=== PATIENT | female | born 1955 | race Caucasian/White ===

== ENCOUNTER 2021-07-01 20:37 | Emergency (ER) | payer MEDICARE, BC ==
[2021-07-01] MEDS ORDERED: Ketorolac Tromethamine 30 MG/ML VIAL ONE (21:43)
[2021-07-01] MEDS ORDERED: Morphine 4 MG/ML VIAL ONE (21:43)
[2021-07-02] MEDS ORDERED: Morphine 4 MG/ML VIAL ONE (02:16)
== END 2021-07-02 01:37 | disposition short-term general hospital (02) ==
LOC: CSHERS 20:37
DX: S72.051A Unspecified fracture of head of right femur, initial encounter for closed fracture (principal); E78.2 Mixed hyperlipidemia; I10 Essential (primary) hypertension; Z79.899 Other long term (current) drug therapy; W01.0XXA Fall on same level from slipping, tripping and stumbling without subsequent striking against object, initial encounter
CPT/HCPCS: J1885; J2270

== ENCOUNTER 2021-09-20 13:41 | Outpatient (CLI) | payer MEDICARE, BC | END 2021-09-20 13:42 | disposition home or self-care (01) | LOC: CSHMAMMO 13:41 | PROVIDERS: ATTEND Family Medicine | DX: Z12.31 Encounter for screening mammogram for malignant neoplasm of breast (principal); Z80.3 Family history of malignant neoplasm of breast | CPT/HCPCS: 77063; 77067 ==